=== PATIENT | female | born 1960 | race African-American/Black ===

== ENCOUNTER 2019-07-17 08:48 | Inpatient (IN) | payer MEDICAID ==
[~2019-07-17] VITALS: Ht 167.6 cm; Wt 84.1 kg
[2019-07-17] VITALS (9 sets, daily range): BP systolic 121–171; BP diastolic 51–86; Ht 167.6 cm; Wt 84.1 kg
--- NOTE | ~2019-07-17 | HEMODYNAMI ---
PATIENT:TIFFANIE COATES MEDICAL RECORD: [id number] : 56 [id number] ADMISSION DATE: 07/18/19 Generatedon:07/18/201915:16 Patient name: TIFFANIE COATES Patient #: [id number] SSN: DO B: 1960 Date of study: 07/18/2019 Page: Of Hemodynamic Procedure Report Patient Data Patient Demographics Procedure consent was obtained First Name: TIFFANIE Gender: Female Last Name: AMINATA : 1960 Patient #: [id number] Age: 59 year(s) Race: Black Additional ID: [id number] Contact details [address]: [address] [place] [address] State: [place] City: [place] Zip code: [address] Past Medical History History of disease Date Diagnosis Comments CAD Allergies: No known allergies Admission Admission Data Admission Date: 07/18/2019 Admission Time: 7:38 Room #: .2112 Height (in.): 65.75 BSA: 1.85 (m2) Height (cm.): 167 BMI: 27.25 (kg/m2) Weight (lbs.): 167.55 Weight (kg.): 76 Current Diagnosis Diagnosis Description Unstable angina Lab Results Lab Result Date: 07/18/2019 Lab Result Time: 0:00 Biochemistry Name Units Result Min Max BUN mg/dl 40 --(----)-* 7 18 Creatinine mg/dl 4.8 --(----)-* 0.6 1.3 CBC Name Units Result Min Max Hematocrit % 31.2 *-(----)-- 42 54 Hemoglobin g/dl 9.8 *-(----)-- 13.5 17.5 Procedure Procedure Types Cath Procedure Diagnostic Procedure [facility] w/Coronaries FFR/IVUS FFR Initial FFR Additional Sedation Charges Moderate Sedation up to 15 minutes PCI Procedure Coronary Stent Coronary Stent Initial x2 Hemochron ACT Test Procedure Description Procedure Date Procedure Date: 07/18/2019 Procedure Start Time: 9:46 Procedure End Time: 10:02 Procedure Staff Name Function Kevin Olmos MD Performing Physician Genet Gonzalez RT Monitor Alisa Hu RN Nurse Argentina Lara RT Scrub Procedure Data Cath Procedure Fluoroscopy Diagnostic fluoroscopy Total fluoroscopy Time: 3.9 time: 3.9 min min Diagnostic fluoroscopy Total fluoroscopy dose: 329 dose: 329 mGy mGy Contrast Material Contrast Material Type Amount (ml) Isovue 370 108 Entry Location Entry Primary Successful Side Size Upsize Upsize Entry Closure Succes sful Closure Location (Fr) 1 (Fr) 2 (Fr) Remarks Device Remarks Femoral Right 5 Fr 6 Fr Exoseal artery Short Estimated blood loss: 10 ml Diagnostic catheters Device Type Used For End Catheter Placement MULTIPACK Pigtail 5 Fr Procedure catheter MULTIPACK JL 4.0 5Fr Procedure catheter MULTIPACK 3DRC 5Fr Procedure catheter Procedure Complications No complications Procedure Medications Medication Administration Route Dosage 0.9% NaCl I.V. 100 ml/hr Oxygen etCO2 Nasal cannula 2 l/min Lidocaine 2% added to field 20 Heparin Flush Bag added to field 2 bags (1000units/500ml NS) Versed I.V. 2 mg Fentanyl I.V. 50 mcg Versed I.V. 2 mg Fentanyl I.V. 50 mcg Heparin Bolus I.V. 4000 units Hemodynamics Rest HGB: 9.8 (g/dl) Heart Rate: 87 (bpm) Snapshots Pre Cath Intra NCS Post Cath Vital Signs Time Heart Resp SPO2 etCO2 NIBP (mmHg) Rhythm Pain Sedation Rate (ipm) (%) (mmHg) Status Level (bpm) 9:21:24 86 22 98 27.9 Measuring NSR 0 (11) 10(A) , No pain 9:22:17 87 18 97 26.4 208/112(162) NSR 0 (11) 10(A) , No pain 9:27:04 76 13 98 21.9 201/110(162) NSR 0 (11) 10(A) , No pain 9:31:29 73 15 97 34 170/93(143) NSR 0 (11) 10(A) , No pain 9:35:53 70 16 97 34 168/100(138) NSR 0 (11) 10(A) , No pain 9:40:21 71 15 98 33.2 170/92(142) NSR 0 (11) 10(A) , No pain 9:44:43 70 15 98 34 160/95(122) NSR 0 (11) 10(A) , No pain 9:49:07 71 11 96 35.5 161/77(115) NSR 0 (11) 10(A) , No pain 9:53:25 70 10 97 34.8 151/81(121) NSR 0 (11) 10(A) , No pain 9:57:43 70 11 97 35.5 146/82(119) NSR 0 (11) 9(A) , No pain 10:02:08 71 11 98 34.7 148/78(122) NSR 0 (11) 9(A) , No pain Medications Time Medication Route Dose Verified Delivered Reason Notes Effectiveness by by 9:19:44 0.9% NaCl I.V. 100 Kevin Alisa used for ml/hr Amarilis Hu senior speech pathologist 9:19:53 Oxygen etCO2 2 Kevin Alisa used for Nasal l/min Amarilis Hu procedure cannula RN 9:19:57 Lidocaine 2% added 20ml Kevin Kevin for local to vial Amarilis Olmos MD anesthetic field 9:20:01 Heparin Flush added 2 Kevin Kevin used for Bag to bags Amarilis Olmos MD procedure (1000units/500ml field NS) 9:45:47 Versed I.V. 2 mg Kevin Alisa for sedation Amarilis Hu RN 9:45:56 Fentanyl I.V. 50 Kevin Alisa for sedation mcg Amarilis Hu RN 9:52:06 Versed I.V. 2 mg Kevin Alisa for sedation Amarilis Hu RN 9:52:09 Fentanyl I.V. 50 Kevin Alisa for sedation mcg Amarilis Hu RN 9:56:07 Heparin Bolus I.V. 4000 Kevin Alisa for verifi ed units Amarilis Hu anticoagulation with Dr. TRINITY Olmos Procedure Log Time Note 8:50:51 Informed consent obtained and on chart 8:51:07 Procedure Status Urgent Heart Cath (IP). 8:51:09 Time tracking: Regular hours (M-F 7:00 - 5:00) 8:51:13 Plan of Care:Hemodynamics will remain stable., Cardiac rhythm will remain stable., Comfort level will be maintained., Respiratory function will remain adequate., Patient/ family verbilizes understanding of procedure., Procedure tolerated without complication., Recovers from procedure without complications.. 8:51:16 H&P Date Dictated: 07/18/2019 Within 30 days and on chart.. 8:51:25 Patient allergic to No known allergies 8:53:06 Lab Result : Hemoglobin 9.8 g/dl 8:53:06 Lab Result : Hematocrit 31.2 % 8:53:06 Lab Result : BUN 40 mg/dl 8:53:06 Lab Result : Creatinine 4.8 mg/dl 9:00:16 Argentina Lara RT(R) sent for patient. Start room use. 9:03:37 Patient Weight : 167.55 lbs 9:03:40 Patient Height : 65.75 inches 9:03:50 Current Diagnosis : Unstable angina 9:13:24 Patient received from Med II to CCL 1 Alert and oriented. Tansferred to table in Supine position. 9:13:25 Warm blankets applied, and harjinder hugger turned on for patient comfort. 9:13:26 ECG and BP/O2 sat monitors applied to patient. 9:13:26 Correct patient and procedure confirmed by team. 9:19:36 Vital chart was started 9:19:44 0.9% NaCl 100 ml/hr I.V. was administered by Alisa Hu RN; used for procedure; Verbal order read back and verified. 9:19:53 Oxygen 2 l/min etCO2 Nasal cannula was administered by Alisa Hu RN; used for procedure; Verbal order read back and verified. 9:19:57 Lidocaine 2% 20ml vial added to field was administered by Kevin Olmos MD; for local anesthetic; Verbal order read back and verified. 9:20:01 Heparin Flush Bag (1000units/500ml NS) 2 bags added to field was administered by Kevin Olmos MD; used for procedure; Verbal order read back and verified. 9:21:34 Baseline sample Acquired. 9:21:37 Rhythm: sinus rhythm 9:21:38 Full Disclosure recording started 9:21:39 Pre-op teaching completed and patient verbalized understanding. 9:21:39 Pre-procedure instructions explained to patient. 9:21:42 Family in patients room. 9:21:43 Patient NPO since Midnight. 9:21:46 Is patient on blood thinner?Yes 9:21:48 ACC The patient was administered the following blood thiners within the last 24 hours: ACCPlavix 9:21:50 Patient diabetic? Yes. 9:21:51 If diabetic: On Metformin? No 9:23:33 Snore? Yes 9:23:33 Previous problem with sedation/anesthesia? No ? 9:23:34 Sleep apnea? No 9:23:35 Deviated septum? No 9:23:36 Opens mouth fully? Yes 9:23:37 Sticks out tongue? Yes 9:23:39 Airway obstruction? No ? 9:23:41 Dentures? No ? 9:23:43 Pre procedure: right dorsailis pedis pulse 1+ Palpable, but thready & weak; easily obliterated 9:23:49 Patient pain scale 0/10 ?. 9:23:55 IV patent on arrival in right antecubital with 0.9% NaCl at KVO. 9:23:57 Lab results completed and on chart. 9:24:00 Right groin area was prepped with chlora-prep and draped in sterile fashion 9:24:02 Alarms reviewed by R. N. 9:24:03 Sharps counted by scrub and verified by R.N. 9:24:05 Use device set Femoral Dx 9:24:06 ACIST Syringe (39325) opened to sterile field. 9:24:07 ACIST Hand Control (03461) opened to sterile field. 9:24:07 Bag Decanter (2002S) opened to sterile field. 9:24:08 Tegaderm 4 x 4 (1626W) opened to sterile field. 9:24:08 ACIST Manifold (33302) opened to sterile field. 9:24:09 Medline Cath Pack ([id number]) opened to sterile field. 9:24:10 DIAGNOSTIC Multipack 5Fr catheter set (XB4323) opened to sterile field. 9:24:11 SHEATH 5FR [place] (PLB032) opened to sterile field. 9:24:11 EMERALD Guide Wire (233-421) opened to sterile field. 9:29:31 Stress Test: no; N/A ? 9:33:09 Zero performed for pressure channel P1 9:44:20 --------ALL STOP TIME OUT------ 9:44:21 Final Timeout: patient, procedure, and site verified with staff and physician. All members of the team are in agreement. 9:44:23 Right groin site verified by team. 9:44:26 Fire Safety Assessment: A--An alcohol-based skin anteseptic being used preoperatively., C--Open oxygen or nitrous oxide is being used., D--An ESU, laser, or fiber-optic light is being used. 9:44:29 Physical assessment completed. ASA score P 3 - A patient with severe systemic disease as per Kevin Olmos MD. 9:44:33 5) <15 or on dialysis Very severe, or end stage kidney failure. 9:44:35 Maximum allowable contrast dose (3.7 X eGFR X 0.75)28 ml. 9:44:38 Sedation plan: IV Moderate Sedation Medication:Versed, Fentanyl 9:45:47 Versed 2 mg I.V. was administered by Alisa Hu RN; for sedation; Verbal order read back and verified. 9:45:56 Fentanyl 50 mcg I.V. was administered by Alisa Hu RN; for sedation; Verbal order read back and verified. 9:46:18 Procedure started. 9:46:31 Local anesthetic to right femoral artery with Lidocaine 2% by Kevin Olmos MD.INITIAL ACCESS ONLY 9:47:09 A 5 Fr sheath was inserted into the Right Femoral artery 9:47:41 A MULTIPACK Pigtail 5 Fr catheter was advanced over the wire and used for Procedure. 9:48:03 LV gram done using ANDERSON 9:48:06 Injector settings: Ml/sec: 10, Volume: 20, 9:48:27 EF : 55 % 9:48:28 Catheter removed. 9:48:35 A MULTIPACK JL 4.0 5Fr catheter was advanced over the wire and used for Procedure. 9:49:35 LCA angiography performed. 9:49:57 Catheter removed. 9:50:01 A MULTIPACK 3DRC 5Fr catheter was advanced over the wire and used for Procedure. 9:50:58 RCA angiography performed. 9:50:59 Catheter removed. 9:51:03 Proceeding to intervention. 9:51:05 SHEATH 6FR [place] (EKU042) opened to sterile field. 9:51:06 GUIDE 6FR XBLAD 3.5 catheter ([id number]) opened to sterile field. 9:51:06 INFLATOR Merit BasixCompak (RA6287) opened to sterile field. 9:51:10 [place] Verrata Plus pressure wire (02025W) opened to sterile field. 9:51:23 Sheath upsized to a 6 Fr Short. 9:52:01 6 Fr XBLAD 3.5 guide catheter was inserted over the wire 9:52:06 Versed 2 mg I.V. was administered by Alisa Hu RN; for sedation; Verbal order read back and verified. 9:52:09 Fentanyl 50 mcg I.V. was administered by Alisa Hu RN; for sedation; Verbal order read back and verified. 9:53:22 FFR/IFR wire advanced. 9:54:10 Wire advanced across lesion. 9:54:25 mLAD lesion measured at .74 with IFR 9:54:34 IFR REDIRECTED TO THE CIRC 9:54:37 Wire advanced across lesion. 9:54:55 Circ lesion measured at .76 with IFR 9:55:11 Pre PCI Site: [place] Circ has 80% stenosis. 9:55:20 Pre PCI Site: [place] LAD has 80% stenosis. 9:56:07 Heparin Bolus 4000 units I.V. was administered by Alisa Hu RN; for anticoagulation; verified with Dr. Olmos Verbal order read back and verified. 9:56:34 Place stent Inflation Number: 1 A HIMA RX 3.0 x 18 stent ([id number]) was prepped and advanced across the Mid CX . The stent was deployed at 13 CARLOS MANUEL for 0:00 (min:sec) . 9:56:57 Stent catheter was removed intact over wire. 9:57:35 Wire redirected to LAD. 9:58:11 Wire advanced across lesion. 9:59:04 Place stent Inflation Number: 1 A HIMA RX 3.0 x 34 stent ([id number]) was prepped and advanced across the Prox LAD . The stent was deployed at 17 CARLOS MANUEL for 0:00 (min:sec) . 9:59:09 Stent catheter was removed intact over wire. 9:59:12 Wire removed. 9:59:13 Guide catheter removed. 9:59:21 EXOSEAL 6Fr (EX600) opened to sterile field. 10:00:09 Sheath removed intact; hemostasis achieved with Exoseal to the Right Femoral artery. 10:00:12 Procedure ended.(Physican Out) 10:00:23 Contrast amount:Isovue 370 108ml. 10:00:28 Fluoroscopy time 03.90 minutes. 10:00:38 Fluoroscopy dose: 329 mGy 10:00:38 Flurop Dose total: 329 10:00:42 Dose Area Product 39103 mGy/cm. 10:00:46 Maximum allowable dose exceeded? Yes. 10:00:47 Sharps counted by scrub and verified by R.N. 10:00:49 Post-op/insertion site Right Femoral artery dressed using a 4 x 4 and Tegaderm. 10:00:52 Post-procedure physical assessment completed. ASA score P 3 - A patient with severe systemic disease as per Kevin Olmos MD. 10:00:55 Post procedure rhythm: sinus rhythm 10:00:57 Estimated blood loss: 10 ml 10:00:58 Patient needs reinforcement of post procedure teaching. 10:00:58 Post procedure instruction explained to patient.Patient verbalizes understanding. 10:01:50 Procedure type changed to Cath procedure, Diagnostic procedure, LHC, [facility] w/Coronaries, FFR/IVUS, FFR Initial, FFR Additional, Sedation Charges, Moderate Sedation up to 15 minutes, PCI procedure, Coronary Stent, Coronary Stent Initial x2, Hemochron ACT Test 10:02:26 ACT drawn and resulted at 201 seconds. (normal therapeutic range 180-240 seconds). 10:02:27 Procedure and supply charges have been captured, reviewed, submitted and are correct. 10:02:30 Procedure Complication : No complications 10:02:32 Vital chart was stopped 10:02:33 [facility] Findings: MVD- PCI performed (see procedure note) 10:02:35 Operative report dictated upon procedure completion. 10:02:36 See physician's report for complete and final results. 10:02:39 Report given to PCU. 10:02:46 Patient transfered to PCU with Bed. 10:02:48 Full Disclosure recording stopped 10:02:48 Procedure ended. 10:02:56 ACC-PCI Only Patient was given prescriptions, or instructed by Kevin Olmos MD to start/continue the following medications upon discharge: Plavix 10:02:58 End room use (Document Last) Intervention Summary Intervention Notes Time ActionType Lesion and Equipment Used Action# Pressure Duration Attributes 9:56:34 Place stent Mid CX HIMA RX 3.0 x 1 13 00:00 18 stent ([id number]) 9:59:04 Place stent Prox LAD HIMA RX 3.0 x 1 17 00:00 34 stent ([id number]) Device Usage Item Name Manufacture Quantity Catalog Hospital Part Current Minimal Lot# / Number Charge Number Stock Stock Serial# Code ACIST Syringe Acist 1 16410 440869 486044 497680 20 (99608) Medical Systems Inc Bag Decanter Microtek 1 2001S 979105 13037 616958 5 (2001S) Medical Inc. ACIST Hand Acist 1 40857 561583 070536 116850 5 Control Medical (69930) Systems Inc ACIST Manifold Acist 1 33065 884704 416471 140290 5 (00358) Medical Systems Inc Tegaderm 4 x 4 3M 1 1626W 123784 195733 809179 5 (1626W) Medline Cath Medline 1 [id number] 685422 04614 334301 5 Pack ([id number]) DIAGNOSTIC Cardinal 1 FB6665 842238 89264 846406 30 Multipack 5Fr Health catheter set (QM0728) EMERALD Guide Cardinal 1 502-455 874899 080237 444422 5 Wire (502-455) Health SHEATH 5FR Terumo 1 VKM974 791775 124506 785336 5 [place] (ZUM081) MULTIPACK Cardinal 1 868052 5 Pigtail 5 Fr Health catheter MULTIPACK JL Cardinal 1 600530 5 4.0 5Fr Health catheter MULTIPACK 3DRC Cardinal 1 606449 5 5Fr catheter Health SHEATH 6FR Terumo 1 RTE496 322749 356429 283455 40 [place] (UVA330) INFLATOR Merit Merit 1 DO3081 000962 528816 787885 15 MWHSmaHexagram 49 Medical (RN8975) GUIDE 6FR Cardinal 1 [id number] 652626 572947 444592 10 XBLAD 3.5 Health catheter ([id number]) Unadilla Unadilla 1 [id number] 395099 994814093 123586 5 Verrata Plus pressure wire (29480S) HIMA RX 3.0 x Medtronic 1 [id number] 011892 9342818 992496 5 [id number] 18 stent ([id number]) HIMA RX 3.0 x Medtronic 1 [id number] 106739 2759768 270007 5 [id number] 34 stent ([id number]) EXOSEAL 6Fr Cardinal 1 EX600 964865 122034 000523 10 (EX600) Health Signature Audit [place] Stage Time Signature Unsigned Intra-Procedure 07/18/2019 Genet Gonzalez 10:08:09 AM RT(R) Intra-Procedure 07/18/2019 Alisa Hu 10:08:37 AM RN Intra-Procedure 07/18/2019 Kevin Hu RN 10:08:50 AM 07/18/2019 3:14:30 PM Intra-Procedure 07/18/2019 Genet Gonzalez 3:15:39 PM RT(R) Intra-Procedure 07/18/2019 Alisa uH 3:16:26 PM RN Intra-Procedure 07/18/2019 Kevin Olmos 3:16:45 PM [place] [id number] [place] [address]
--- NOTE | ~2019-07-17 | HEMODYNAMI ---
PATIENT:TIFFNAIE COATES MEDICAL RECORD: [id number] : 56 LOCATION:[facility] [address] [place], [place] [address]T# [id number] ADMISSION DATE: 07/18/19 Generatedon:07/22/20198:04 Patient name: TIFFANIE COATES Patient #: [id number] SSN: [id number] : 1960 Date of study: 07/22/2019 Page: Of Hemodynamic Procedure Report Patient Data Patient Demographics Procedure consent was obtained First Name: TIFFANIE Gender: Female Last Name: AMINATA : 1960 Patient #: [id number] Age: 59 year(s) Race: Black SSN: [id number] Additional ID: [id number] Contact details [address]: [address] [place] [address] State: [place] City: [place] Zip code: [address] Past Medical History History of disease Date Diagnosis Comments CAD Allergies: No known allergies Admission Admission Data Admission Date: 07/18/2019 Admission Time: 7:38 Room #: D.2112 Height (in.): 65.75 BSA: 1.93 (m2) Height (cm.): 167 BMI: 30.12 (kg/m2) Weight (lbs.): 185.19 Weight (kg.): 84 Current Diagnosis Diagnosis Description Unstable angina Lab Results Lab Result Date: 07/18/2019 Lab Result Time: 0:00 Biochemistry Name Units Result Min Max BUN mg/dl 40 --(----)-* 7 18 Creatinine mg/dl 4.8 --(----)-* 0.6 1.3 CBC Name Units Result Min Max Hematocrit % 31.2 *-(----)-- 42 54 Hemoglobin g/dl 9.8 *-(----)-- 13.5 17.5 Procedure Procedure Types Cath Procedure PCI Procedure Coronary Stent Coronary Stent Initial Hemochron ACT Test Procedure Description Procedure Date Procedure Date: 07/22/2019 Procedure Start Time: 7:51 Procedure End Time: 8:02 Procedure Staff Name Function Kevin Olmos MD Performing Physician Alisa Hu RN Monitor Genetkayli Gonzalez RT Scrub Les Garza RN Nurse Procedure Data Cath Procedure Fluoroscopy Diagnostic fluoroscopy Total fluoroscopy Time: 1.9 time: 1.9 min min Diagnostic fluoroscopy Total fluoroscopy dose: 274 dose: 274 mGy mGy Contrast Material Contrast Material Type Amount (ml) Isovue 300 26 Entry Location Entry Primary Successful Side Size Upsize Upsize Entry Closure Succes sful Closure Location (Fr) 1 (Fr) 2 (Fr) Remarks Device Remarks Radial Right 6 Fr artery Short Estimated blood loss: 10 ml Procedure Complications No complications Procedure Medications Medication Administration Route Dosage Oxygen NC 2 l/min Fentanyl I.V. 50 mcg Versed I.V. 1 mg Heparin Flush Bag added to field 2 bags (1000units/500ml NS) Lidocaine 2% added to field 20 0.9% NaCl I.V. 100 ml/hr Heparin Bolus I.V. 4000 units Fentanyl I.V. 50 mcg Radial Cocktail added to field 1 syringe (Verapamil 2mg/Nitro 400mcg/Heparin 1500units) Radial Cocktail I.A. 1 syringe (Verapamil 2mg/Nitro 400mcg/Heparin 1500units) Versed I.V. 1 mg Hemodynamics Rest BSA: 1.93 (m2) HGB: 9.8 (g/dl) O2 Consumption: Estimated: 198.29 (ml/min) O2 Con sumption indexed: Estimated:102.74 (ml/min/m) Heart Rate: 92 (bpm) Snapshots Pre Cath Intra NCS Post Cath Vital Signs Time Heart Resp SPO2 etCO2 NIBP (mmHg) Rhythm Pain Sedation Rate (ipm) (%) (mmHg) Status Level (bpm) 7:34:56 90 18 95 28.4 181/94(135) NSR 0 (11) 10(A) , No pain 7:39:18 84 16 95 25.4 173/88(130) NSR 0 (11) 10(A) , No pain 7:43:32 83 16 93 30.6 145/85(108) NSR 0 (11) 10(A) , No pain 7:47:46 83 17 94 31.3 155/80(112) NSR 0 (11) 10(A) , No pain 7:52:00 87 18 96 30.6 144/78(112) NSR 0 (11) 9(A) , No pain 7:56:16 85 17 93 30.6 130/75(106) NSR 0 (11) 9(A) , No pain 7:59:28 85 14 94 30.6 138/81(100) NSR 0 (11) 9(A) , No pain Medications Time Medication Route Dose Verified Delivered Reason Notes Effectiveness by by 7:50:13 Oxygen NC 2 l/min Kevin Alisa Per physician Amarilis Hu RN 7:50:20 Fentanyl I.V. 50 mcg Kevin Alisa for sedation Amarilis Hu RN 7:50:26 Versed I.V. 1 mg Kevin Alisa for sedation Amarilis Hu RN 7:50:32 Heparin Flush added 2 bags Kevin Alisa used for Bag to Amarilis Hu procedure (1000units/500ml field RN NS) 7:50:41 Lidocaine 2% added 20ml Kevin Alisa for local to vial Amarilis Hu anesthetic field RN 7:50:50 0.9% NaCl I.V. 100 Kevin Alisa Per physician ml/hr Amarilis Hu RN 7:52:15 Heparin Bolus I.V. 4000 Kevin Alisa for units Amarilis Hu anticoagulation RN 7:52:32 Fentanyl I.V. 50 mcg Kevin Alisa for sedation Amarilis Hu RN 7:52:49 Radial Cocktail added 1 Kevin Alisa used for (Verapamil to syringe Amarilis Hu procedure 2mg/Nitro field RN 400mcg/Heparin 1500units) 7:52:56 Radial Cocktail I.A. 1 Kevin Kevin for (Verapamil syringe Amarilis Olmos MD vasodilation 2mg/Nitro 400mcg/Heparin 1500units) 7:54:14 Versed I.V. 1 mg Kevin Alisa for sedation Amarilis Hu supervisor keymodule assembly Log Time Note 7:11:13 Patient Height : 65.75 inches 7:11:13 Informed consent obtained and on chart 7:12:01 Procedure Status Urgent Heart Cath (IP). 7:12:03 Time tracking: Regular hours (M-F 7:00 - 5:00) 7:12:08 Plan of Care:Hemodynamics will remain stable., Cardiac rhythm will remain stable., Comfort level will be maintained., Respiratory function will remain adequate., Patient/ family verbilizes understanding of procedure., Procedure tolerated without complication., Recovers from procedure without complications.. 7:12:15 H&P Date Dictated: 07/22/2019 Within 30 days and on chart.. 7:13:48 Patient allergic to No known allergies 7:13:54 Is the patient allergic to Iodine/contrast media? No. 7:13:56 Was the patient premedicated? N/A 7:15:03 Is patient on blood thinner?Yes 7:15:07 ACC The patient was administered the following blood thiners within the last 24 hours: ACCPlavix 7:15:43 Patient Weight : 185.19 lbs 7:17:23 Diagnostic Cath Status : Urgent 7:17:36 Patient not . Patient is over age 55. 7:18:12 Patient diabetic? Yes. 7:18:12 If diabetic: On Metformin? No 7:18:51 Procedure type changed to Cath procedure, PCI procedure, Coronary Stent, Coronary Stent Initial, Hemochron ACT Test 7:19:02 Alisa Hu RN sent for patient. Start room use. 7:33:36 Patient received from Med II to CCL 1 Alert and oriented. Tansferred to table in Supine position. 7:33:44 Warm blankets applied, and harjinder hugger turned on for patient comfort. 7:33:44 Correct patient and procedure confirmed by team. 7:33:44 ECG and BP/O2 sat monitors applied to patient. 7:33:45 Vital chart was started 7:33:46 Baseline sample Acquired. 7:33:49 Rhythm: sinus rhythm 7:33:50 Full Disclosure recording started 7:33:51 Pre-procedure instructions explained to patient. 7:33:51 Pre-op teaching completed and patient verbalized understanding. 7:33:53 Family unavailable. 7:33:54 Patient NPO since Midnight. 7:34:00 Previous problem with sedation/anesthesia? No ? 7:34:01 Snore? Yes 7:34:02 Sleep apnea? No 7:34:03 Deviated septum? No 7:34:04 Opens mouth fully? Yes 7:34:08 Sticks out tongue? Yes 7:34:09 Airway obstruction? No ? 7:34:11 Dentures? No ? 7:34:14 Pre procedure: right dorsailis pedis pulse 1+ Palpable, but thready & weak; easily obliterated 7:34:16 Modified Tres's test Ulnar < 7 seconds 7:34:17 Patient pain scale 0/10 ?. 7:34:21 IV patent on arrival in right hand with 0.9% NaCl at [facility]. 7:34:24 Lab results completed and on chart. 7:34:28 Right Radial & Right Groin area was prepped with chlora-prep and draped in sterile fashion 7:34:29 Alarms reviewed by R. N. 7:34:32 Sharps counted by scrub and verified by R.N. 7:44:03 Stress Test: no; N/A ? 7:48:18 Risk of Mortality: 0.9 7:48:20 Risk of blood transfusion: 19.3 7:48:23 Risk of NADEEM: 12.6 7:48:27 --------ALL STOP TIME OUT------ 7:48:28 Final Timeout: patient, procedure, and site verified with staff and physician. All members of the team are in agreement. 7:50:03 Right Radial & Left Groin site verified by team. 7:50:07 Fire Safety Assessment: A--An alcohol-based skin anteseptic being used preoperatively., C--Open oxygen or nitrous oxide is being used., D--An ESU, laser, or fiber-optic light is being used. 7:50:12 Physical assessment completed. ASA score P 3 - A patient with severe systemic disease as per Kevin Olmos MD. 7:50:13 Oxygen 2 l/min NC was administered by Alisa Hu RN; Per physician; Verbal order read back and verified. 7:50:16 5) <15 or on dialysis Very severe, or end stage kidney failure. 7:50:20 Fentanyl 50 mcg I.V. was administered by Alisa Hu RN; for sedation; Verbal order read back and verified. 7:50:26 Versed 1 mg I.V. was administered by Alisa Hu RN; for sedation; Verbal order read back and verified. 7:50:31 Maximum allowable contrast dose (3.7 X eGFR X 0.75)31 ml. 7:50:32 Heparin Flush Bag (1000units/500ml NS) 2 bags added to field was administered by Alisa Hu RN; used for procedure; Verbal order read back and verified. 7:50:35 Sedation plan: IV Moderate Sedation Medication:Versed, Fentanyl 7:50:41 Lidocaine 2% 20ml vial added to field was administered by Alisa Hu RN; for local anesthetic; Verbal order read back and verified. 7:50:42 Use device set Radial Dx or PCI 7:50:44 ACIST Syringe (14963) opened to sterile field. 7:50:44 Medline Cath Pack ([id number]) opened to sterile field. 7:50:45 Bag Decanter () opened to sterile field. 7:50:46 ACIST Hand Control (08209) opened to sterile field. 7:50:47 ACIST Manifold (75155) opened to sterile field. 7:50:48 Tegaderm 4 x 4 (1626W) opened to sterile field. 7:50:48 MBrace Wrist Support ([id number]) opened to sterile field. 7:50:50 0.9% NaCl 100 ml/hr I.V. was administered by Alisa Hu RN; Per physician; Verbal order read back and verified. 7:50:51 EMERALD Guide Wire (271-393) opened to sterile field. 7:50:52 SHEATH 6FR RAIN (7957591) opened to sterile field. 7:51:29 GUIDE 6FR AR 2.0 SH catheter ([id number]) opened to sterile field. 7:51:30 INFLATOR Merit BasixCompak (SY8348) opened to sterile field. 7:51:31 FIELDER XT 190cm guidewire ([id number]) opened to sterile field. 7:51:48 Procedure started. 7:51:55 Local anesthetic to right radial artery with Lidocaine 2% by Kevin Olmos MD.INITIAL ACCESS ONLY 7:52:06 A 6 Fr Short sheath was inserted into the Right Radial artery 7:52:15 Heparin Bolus 4000 units I.V. was administered by Alisa Hu RN; for anticoagulation; Verbal order read back and verified. 7:52:22 PCI Cath status Elective 7:52:32 Fentanyl 50 mcg I.V. was administered by Alisa Hu RN; for sedation; Verbal order read back and verified. 7:52:49 Radial Cocktail (Verapamil 2mg/Nitro 400mcg/Heparin 1500units) 1 syringe added to field was administered by Alisa Hu RN; used for procedure; Verbal order read back and verified. 7:52:56 Radial Cocktail (Verapamil 2mg/Nitro 400mcg/Heparin 1500units) 1 syringe I.A. was administered by Kevin Olmos MD; for vasodilation; Verbal order read back and verified. 7:53:07 ACC Pre-intervention CHRISTINA Flow is 3. 7:53:08 Pre PCI Site: Nikolai RCA has 80% stenosis. 7:53:14 6 Fr AR II SH guide catheter was inserted over the wire 7:53:25 FIELDER 190CM wire advanced. 7:53:26 Wire advanced across lesion. 7:54:14 Versed 1 mg I.V. was administered by Alisa Hu RN; for sedation; Verbal order read back and verified. 7:54:50 Place stent Inflation Number: 1 A HIMA RX 3.0 x 30 stent ([id number]) was prepped and advanced across the Prox RCA . The stent was deployed at 17 CARLOS MANUEL for 0:00 (min:sec) . 7:55:43 Inflation number: 2 The stent balloon was then re-inflated across the Prox RCA to 11 CARLOS MANUEL for 0:00 (min:sec) . 7:55:48 Stent catheter was removed intact over wire. 7:55:49 Wire removed. 7:55:49 Guide catheter removed. 7:58:28 ZEPHYR REGULAR TR BAND (835678) opened to sterile field. 7:58:36 Procedure ended.(Physican Out) 7:58:50 Fluoroscopy time 01.90 minutes. 7:58:54 Fluoroscopy dose: 274 mGy 7:58:54 Flurop Dose total: 274 7:59:00 Dose Area Product 00597 mGy/cm. 7:59:06 ACT drawn and resulted at 187 seconds. (normal therapeutic range 180-240 seconds). 7:59:15 Contrast amount:Isovue 300 26ml. 7:59:22 Maximum allowable dose exceeded? No. 7:59:23 Sharps counted by scrub and verified by R.N. 7:59:25 Brackney band inflated with 10cc of air. 7:59:27 Insertion/operative site no bleeding no hematoma. 7:59:36 Post right radial artery:stable, soft, clean and dry 7:59:40 Post Procedure Pulses reassessed and unchanged 7:59:47 Post procedure: right radial pulse 2+ Normal; easily identifiable; not easily obliterated. 7:59:50 Post-procedure physical assessment completed. ASA score P 3 - A patient with severe systemic disease as per Kevin Olmos MD. 7:59:52 Post procedure rhythm: unchanged. 7:59:55 Estimated blood loss: 10 ml 7:59:56 Post procedure instruction explained to patient.Patient verbalizes understanding. 7:59:57 Patient needs reinforcement of post procedure teaching. 8:02:06 Procedure and supply charges have been captured, reviewed, submitted and are correct. 8:02:10 Procedure Complication : No complications 8:02:12 Vital chart was stopped 8:02:14 [facility] Findings: MVD- PCI performed (see procedure note) 8:02:16 Operative report dictated upon procedure completion. 8:02:17 See physician's report for complete and final results. 8:02:19 Report given to Med II. 8:02:24 Patient transfered to Med II with Bed. 8:02:26 Procedure ended. 8:02:26 Full Disclosure recording stopped 8:02:35 ACC-PCI Only Patient was given prescriptions, or instructed by Kevin Olmos MD to start/continue the following medications upon discharge: Plavix 8:02:36 End room use (Document Last) 8:02:52 End room use (Document Last) 8:03:13 End room use (Document Last) Intervention Summary Intervention Notes Time ActionType Lesion and Equipment Used Action# Pressure Duration Attributes 7:54:[address] Place stent Prox RCA HIMA RX 3.0 x 1 17 00:00 30 stent ([id number]) 7:55:43 Reinflate Prox RCA HIMA RX 3.0 x 2 11 00:00 stent 30 stent balloon ([id number]) Device Usage Item Name Manufacture Quantity Catalog Hospital Part [facility] Lot# / Number Charge Number Stock Stock Serial# Code ACIST Syringe Acist 1 00981 461523 729106 988237 20 (87905) [employer] Inc Medline Cath Medline 1 [id number] 293818 77339 950631 5 Pack ([id number]) Bag Decanter Microtek 1 228493 89966 153026 5 () Medical Inc. ACIST Hand Acist 1 63345 702640 696809 355385 5 Control Medical (03083) Systems Inc ACIST Manifold Acist 1 60674 868656 067203 007526 5 (44406) Medical Systems Inc Tegaderm 4 x 4 3M 1 1626W 423751 883627 710582 5 (1626W) MBrace Wrist Advanced 1 140-0250-00 097605 49405 318523 5 Support Vascular ([id number]) Dynamics EMERALD Guide Cardinal 1 502-455 085973 393188 351330 5 Wire (502-455) Health SHEATH 6FR Cardinal 1 8926784 955184 6261593 653722 5 RAIN (2947560) Health GUIDE 6FR AR Medtronic 1 [id number] 072502 96464 229668 1 2.0 SH catheter (FO8MC2VT) INFLATOR Merit Merit 1 [id number] 599430 442642 844844 15 [employer] Medical (XT7810) FIELDER XT Asahi Intecc 1 [id number] 165332 51812 642709 5 190cm guidewire ([id number]) HIMA RX 3.0 x Medtronic 1 [id number] 147063 8697759 335968 5 [id number] 30 stent ([id number]) ZEPHYR REGULAR Cardinal 1 828986 578102 8666596 446952 5 [facility] ProductGram (591436) Signature Audit [place] Stage Time Signature Unsigned Intra-Procedure 07/22/2019 Alisa Hu 8:02:52 AM RN Intra-Procedure 07/22/2019 Les Garza 8:03:37 AM RN Intra-Procedure 07/22/2019 Kevin Olmos 8:04:40 AM Signatures Performing Physician : Signature : Kevin Olmos MD Date : Time : Monitor : Alisa Hu Signature : RN Date : Time : Nurse : Les Garza RN Signature : Date : Time : [address] [place] [address]
--- NOTE | ~2019-07-17 | OP ---
PATIENT NAME: TIFFANIE COATES MEDICAL RECORD: [id number] :56 LOCATION:D.M2 D.2112 ADMISSION DATE:07/18/19 SURGEON: AMALIA VANG MD DATE OF OPERATION: 07/22/2019 DATE OF SERVICE: 07/22/2019 PROCEDURES: 1. PTCA stent RCA. 2. Selective coronary angiography. INDICATION: Angina and coronary artery disease. PROCEDURE IN DETAIL: After informed consent was obtained and after detailed description of risks, benefits as well as alternative therapies, the patient elected to proceed with the angiogram and angioplasty. The right radial area was prepped and draped in normal sterile fashion. Right radial artery was cannulated via modified Seldinger technique with placement of 6-Estonian sheath. All catheters exchanged through this sheath. FINDINGS: The right coronary has 80% stenosis proximally. It then has a previously placed stent and 95% stenosis at the PDA. The PDA could not be wired through the previously placed stent. We addressed the proximal stenosis with a 3.0 x 30 Zaid taken at 21 atmospheres. Result was 0% residual stenosis. OVERALL IMPRESSION: Successful percutaneous transluminal coronary angioplasty stent of the right coronary artery going from 80% initial stenosis to 0% residual. TRANSINT:[id number] Voice Confirmation ID: [id number] DOCUMENT ID: [id number] AMALIA VANG MD CC: [id number] DICTATION DATE: 07/22/19 0800 THREAD TRIMMER: 07/22/19 1124 ADM IN [facility] [address] [place] [address]
[2019-07-17] MEDS ORDERED: HYDROCHLOROTHIA25 MG PO (08:56)
[2019-07-17] MEDS ORDERED: CATAPRES0.1 MG PO (08:56)
[2019-07-17] MEDS ORDERED: LISINOPRIL2.5 MG PO (08:57)
[2019-07-17] MEDS ORDERED: SODIUM BICARBO325 MG PO (08:57)
[2019-07-17] MEDS ORDERED: PLAVIX75 MG PO (08:58)
[2019-07-17] MEDS ORDERED: NITROQUICK0.4 MG SL (08:59)
[2019-07-17] MEDS ORDERED: JANUVIA25 MG PO (09:02)
[2019-07-17] MEDS ORDERED: LEVEMIR IN100 UNITS/ SC (09:02)
[2019-07-17 09:35] LABS: BASOPHILS 0.5 % (0-2); EOSINOPHILS 1.1 % (0-7); HEMATOCRIT 33.2 % (36.0-48.0); HEMOGLOBIN 10.7 g/dL (12-16); IMMATURE GRANULOCYTES 0.1 % (0-5); LYMPHOCYTES 20.4 % (15-50); MCH 31.9 pg (26.0-34.0); MCHC 32.2 g/dL (31.0-37.0); MCV 99.1 fL (80.0-100.0); MEAN PLATELET VOLUME 10.7 fL (7.4-10.4); MONOCYTES 5.4 % (2-11); NEUTROPHILS 72.5 % (40-80); PLATELET COUNT 299 10x3/uL (130-400); RBC 3.35 10x6/uL (4.00-5.40); WBC 8.2 10x3/uL (4.8-10.8)
[2019-07-17 09:43] LABS: APTT 29.6 SECONDS (22.8-39.4); INR 1.27 (0.85-1.17); PROTIME 15.8 SECONDS (11.6-15.0)
[2019-07-17 09:45] LABS: CALC OSMOLALITY 294 mosm/kg (275-300); CALCIUM 8.5 mg/dL (8.5-10.1); CARBON DIOXIDE 21.5 mmol/L (21.0-32.0); CHLORIDE - SERUM 109 mmol/L (98-107); CREATININE - SERUM 4.8 mg/dL (0.6-1.3); GLUCOSE 151 mg/dL (74-106); POTASSIUM - SERUM 4.3 mmol/L (3.5-5.1); SODIUM 142 mmol/L (136-145); UREA NITROGEN 39 mg/dL (7-18); eGFR NON AFRICAN AMERICAN 10 mL/min (90-120)
[2019-07-17 09:59] LABS: ALBUMIN 2.9 g/dL (3.4-5.0); ALKALINE PHOSPHATASE 115 U/L (30-120); ALT (SGPT) 15 U/L (10-68); BILIRUBIN - TOTAL 0.55 mg/dL (0.2-1.3); CKMB 3.2 U/L (0.0-3.6); CREATINE KINASE 144 UL (21-215); PROTEIN - SERUM 7.5 g/dL (6.4-8.2); TROPONIN-I 0.018 ng/mL (0.000-0.060)
[2019-07-17 11:09] LABS: CREATINE KINASE 153 UL (21-215)
--- NOTE | 2019-07-17 11:10 | NUR ---
REPORT TO TRINITY ANTONY
--- NOTE | 2019-07-17 11:17 | NUR ---
TRANSPORTED TO ROOM #2112, CONDITION STABLE
--- NOTE | 2019-07-17 11:29 | NUR ---
RECEIVED PT FROM ER. PT IS AAO AND UP AD ARIANA. RR EVEN AND UNLABORED ON RA. VSS AND WNL. NO S/S OF DISTRESS NOTED. PT SITTING ON EDGE OF BED. CALL LIGHT W/I REACH. FAMILY AT BEDSIDE. PIV SALINE LOCKED. PT ORIENTED TO ROOM. QUICKSTART, HISTORY, AND MED REQ COMPLETE. WILL CTM.
[2019-07-17 12:58] LABS: % SATURATION 33 % (15-55); IRON 90 ug/dl (35-150); TOTAL IRON BIND CAPACITY 268 ug/dl (260-445); UNSAT IRON BIND CAPACITY 178 ug/dl (150-375)
[2019-07-17 14:17] LABS: BILIRUBIN NEGATIVE (NEGATIVE); GLUCOSE 50 mg/dL (NEGATIVE); KETONE NEGATIVE (NEGATIVE); NITRITE NEGATIVE (NEGATIVE); SPECIFIC GRAVITY 1.015 (1.005-1.020); UROBILINOGEN NORMAL (NORMAL)
[2019-07-17 14:19] LABS: EPITHELIAL CELLS 0-5 /hpf (0-5); RED CELLS - URINE 0-5 /hpf (0-5); WHITE CELLS - URINE 25-50 /hpf (NEGATIVE)
[2019-07-17 14:20] LABS: BACTERIA MANY /hpf (NEGATIVE); HYALINE CAST 0-5 /lpf (NONE SEEN)
[2019-07-17 16:57] LABS: CKMB 4.2 U/L (0.0-3.6); CREATINE KINASE 125 UL (21-215); TROPONIN-I 0.053 ng/mL (0.000-0.060)
--- NOTE | 2019-07-17 19:34 | NUR ---
REPORT RECEIVED, WILL CONTINUE POC. PATIENT IS AAOX4, LYING IN SEMI-FOWLERS POSITION. NO S/S OF DISTRESS OBSERVED, RR EVEN AND UNLABORED ON ROOM AIR. EDUCATED PATIENT ABOUT NPO@ MIDNIGHT FOR PROCEDURE IN AM. PATIENT EXPRESSED UNDERSTANDING. PIV TO LT HAND, PATENT, INFUSING NS @ 75ML/HR, DRSG C/D/I. PATIENT DENIES NEEDS AT THIS TIME. CL IN REACH, BED LOCKED AND LOWERED. WILL CTM.
[2019-07-17 22:46] LABS: CKMB 7.2 U/L (0.0-3.6); CREATINE KINASE 128 UL (21-215)
[2019-07-17 22:53] LABS: TROPONIN-I 0.151 ng/mL (0.000-0.060)
[2019-07-18] VITALS (14 sets, daily range): BP systolic 136–210; BP diastolic 80–116
--- NOTE | 2019-07-18 03:31 | NUR ---
I have reviewed this patient and I concur with the Shift Assessment completed by the Licensed Practical Nurse today this shift.
--- NOTE | 2019-07-18 04:54 | NUR ---
PT BP 210/116 PRN CLONIDINE ADMINISTERED PER ORDERS.
[2019-07-18 05:12] LABS: BASOPHILS 0.2 % (0-2); EOSINOPHILS 1.3 % (0-7); HEMATOCRIT 31.2 % (36.0-48.0); HEMOGLOBIN 9.8 g/dL (12-16); IMMATURE GRANULOCYTES 0.2 % (0-5); LYMPHOCYTES 13.2 % (15-50); MCHC 31.4 g/dL (31.0-37.0); MEAN PLATELET VOLUME 10.7 fL (7.4-10.4); MONOCYTES 9.7 % (2-11); NEUTROPHILS 75.4 % (40-80); PLATELET COUNT 261 10x3/uL (130-400); RBC 3.06 10x6/uL (4.00-5.40); RDW 15.4 % (11.5-14.5); WBC 9.9 10x3/uL (4.8-10.8)
[2019-07-18 05:27] LABS: ANION GAP 17.4 mmol/L (8-16); CREATININE - SERUM 4.8 mg/dL (0.6-1.3); POTASSIUM - SERUM 4.4 mmol/L (3.5-5.1)
--- NOTE | 2019-07-18 07:28 | NUR ---
PT IS RESTING IN BED WITH EYES OPEN. RESPIRATIONS ARE EVEN AND UNLABORED. PT IS AAO X 4. PT DENIES PRESENCE OF PAIN/N/V/DYSPNEA AT THIS TIME. FAMILY IS AT BEDSIDE. PIV TO RIGHT HAND INPLACE AND INFUSING WITHOUT DIFFICULTY. BED IS IN THE LOWEST POSITION. CALL LIGHT AND BEDSIDE TABLE ARE WITHIN REACH. SIDE RAILS X 2 PT DENIES FURTHER NEEDS. WILL CONT TO MONITOR.
--- NOTE | 2019-07-18 08:28 | NUR ---
MORNING MEDS GIVEN WITH SIPS OF H2O PER DR SHINE. SEE EMAR.
--- NOTE | 2019-07-18 08:29 | NUR ---
NITRO PATCH REMOVED FROM RIGHT CHEST.
--- NOTE | 2019-07-18 09:00 | NUR ---
PRE OP MEDS ADMINISTERED PER ORDER REQUESTED FROM DEPARTMENT HEAD STAFF.
--- NOTE | 2019-07-18 09:10 | NUR ---
PT TANSPORTED OFF FLOOR VIA BED FOR PROCEDURE.
--- NOTE | 2019-07-18 10:04 | CN ---
PATIENT NAME:TIFFANIE COATES MEDICAL RECORD: [id number] : 56 LOCATION:D. D.2112 ADMIT DATE: 07/18/19 ACCOUNT: [id number] CONSULTING PHYSICIAN: AMALIA VANG MD REFERRING PHYSICIAN: DANIEL STORY MD DATE OF CONSULTATION: 07/17/2019 DIAGNOSES: 1. Unstable angina. 2. Coronary artery disease. 3. Previous percutaneous transluminal coronary angioplasty stent. 4. Hypertension. 5. Hyperlipidemia. 6. Renal insufficiency. HISTORY OF PRESENT ILLNESS: Mrs. Coates has a history of coronary artery disease. Last cardiac stent approximately a year ago at [facility]. She developed severe chest discomfort today just like that of her previous angina, but even more severe. It took multiple sublingual nitro in the Emergency Room to resolve it. She continues to have chest discomfort now, but at a much lower level. It is a classic angina pressure, tightness sensation across the anterior chest associated with diaphoresis and shortness of breath. She was scheduled to have a dialysis fistula placed tomorrow by Dr. Blanton. She is now admitted with the angina. PHYSICAL EXAMINATION: CONSTITUTIONAL/GENERAL APPEARANCE: Well nourished, well developed, appears stated age. EYES: Lids and conjunctivae noninjected. No discharge. No pallor. ENT: Lips within normal limit. No cyanosis. No pallor. NECK: Carotid arteries, bilateral normal upstroke. No bruits. No thrills. No jugular venous pressure or distention. CERVICAL LYMPH NODES: Nontender. Nonenlarged. THYROID: Not enlarged. No nodules. CARDIOVASCULAR: Precordial exam, nondisplaced. No heaves or pericardial thrills. Rate and rhythm, regular. Heart sounds, normal S1, normal S2. No S3, no gallop, no rub. Systolic murmur, not heard. Diastolic murmur, not heard. RESPIRATORY: Respiratory effort, unlabored. Normal curvature. No thoracic deformity. No chest wall tenderness. Percussion, resonant. Auscultation, clear. No wheezes, no rales, no rhonchi. ABDOMEN: Soft, nondistended, nontender. No abdominal pain, no vomiting and normal appetite. MUSCULOSKELETAL: No joint tenderness, normal gait, normal tone. SKIN: Warm and dry. OVERALL IMPRESSION: Unstable angina. At this time, we will add nitrates and use morphine to make her pain free. We will have to proceed with coronary angiography in the a.m. after that fistula can be placed. Further care depends upon the findings of the angiography. TRANSINT:[id number] Voice Confirmation ID: [id number] DOCUMENT ID: [id number] CONSULT REPORT [id number] TIFFANIE COATES JEFFREY MD at 1004 CC: [id number] DICTATION DATE: 07/17/19 1259 FANCY WIRE DRAWER: 07/17/19 2134 ADM IN [place] [id number] [place] [address]
--- NOTE | 2019-07-18 10:25 | NUR ---
PT RETURNS TO ROOM VIA BED. PT RESTING COMFORTABLY WITHOUT APPARENT S/S OF DISTRESS NOTED. VSS. SEE FLOW SHEET. DRESSING TO RIGHT GROIN IS CDI. RLE PULSES PALP. RLE WARM. PT MOTHER IS AT BEDSIDE. PT MOTHER AND PT INSTRUCTED ON IMPORTANCE OF LAYING FLAT X 4 HOURS. PT MOTHER VERBALIZES UNDERSTANDING. PT IS RESTING WITH EYES CLOSED. RESPIRATIONS ARE EVEN AND UNLABORED. BED IS IN THE LOWEST POSITION. CALL LIGHT AND BEDSIDE TABLE ARE WITHIN REACH. SIDE RAILS X 2. PT AND PT MOTHER DENY FURTHER NEEDS. WILL CONT TO MONITOR.
--- NOTE | 2019-07-18 11:24 | NUR ---
SPOKE WITH SWETA IN SURGERY. PROCEDURE CANCELLED FOR TODAY. WILL AWAIT FURTHER ORDERS.
--- NOTE | 2019-07-18 16:42 | EC ---
PATIENT:TIFFANIE COATES DATE OF SERVICE: 07/18/19 SEX: F MEDICAL RECORD: [id number] DATE OF : 56 LOCATION:D.M2 D.211 AGE OF PATIENT: 59 ADMISSION DATE: 07/18/19 REFERRING PHYSICIAN: INTERPRETING PHYSICIAN: AMALIA OLMOS MD ECHOCARDIOGRAM REPORT ECHO CHARGES 4 ECHO COMPLETE Date: 07/17/19 CLINICAL DIAGNOSIS: CHF/UNSTABLE ANGINA ECHOCARDIOGRAPHIC MEASUREMENTS (adult normal given) AC root (d.<3.7cm) 3.0 cm LV Septum d (<1.2 cm> 1.9 cm Valve Excursion 1.4 cm LV Septum (systole) 2.4 cm Left Atria (s.<4.0cm> 5.3 cm LVPW d(<1.2cm) 1.9 cm RV (d.<2.3cm) 2.7 cm LVPW (sytole) 2.4 cm LV diastole(<5.6CM) 4.5 cm MV E-F(>70mm/sec) cm LV systole 3.1 cm LVOT Diameter 1.8 cm MV exc.(>10mm) cm Est.ejection fraction (50-75%) % DOPPLER: LVIT cm/sec A 55.0 cm/sec E 151 cm/sec LA cm/sec RVSP 65.0 mmHg LVOT 123 cm/sec AOP1/2T m/s Asc. Ao 267 cm/sec RVOT 75.0 cm/sec RA cm/sec PA 156 cm/sec AV Gradient Peak 29.0 mmHg AV Mean 14.0 mmHg AV Area 1.3 cm MV Gradient Peak 12.3 mmHg MV Mean 3.9 mmHg MV Area cm COMMENTS: Massage Therapist: 1 MARY FLORESOE Package Line Operator: 1 Dr. Olmos TAPE# PACS Pericardial Effusion N DATE OF SERVICE: ECHOCARDIOGRAM FINDINGS: 1. Left ventricular chamber size is within normal limits. Left ventricular systolic function is normal at 50-55%. 2. Left atrium is enlarged at 5.3 cm. Right atrium and right ventricular chamber sizes are as well mildly dilated. 3. Valvular structures have normal structure and motion. ECHOCARDIOGRAM REPORT [id number] TIFFANIE COATES 4. Doppler interrogation reveals moderate mitral regurgitation, moderate tricuspid regurgitation, no other valvular insufficiency or stenosis. Pulmonary systolic pressure estimated at 65 mmHg. 5. No evidence of pericardial effusion or left ventricular thrombus. TRANSINT:[id number] Voice Confirmation ID: [id number] DOCUMENT ID: [id number] AMALIA OLMOS MD at 1642 CC: [id number] DICTATION DATE: 07/18/19 1148 PERSONAL INJURY SPECIALIST: 07/18/19 1228 ADM IN [facility] [address] [place] [address]
--- NOTE | 2019-07-18 16:42 | OP ---
PATIENT NAME: TIFFANIE COATES MEDICAL RECORD: [id number] :56 LOCATION:D.M2 D.2111 ADMISSION DATE:07/18/19 SURGEON: AMALIA VANG MD DATE OF OPERATION: 07/18/2019 DATE OF SERVICE: 07/18/2019 PROCEDURES: 1. PTCA stent LAD. 2. PTCA stent left circumflex. 3. IFR LAD. 4. IFR left circumflex. 5. Left heart catheterization. 6. Selective coronary therapy. 7. Left ventriculogram. INDICATION: Angina and coronary artery disease. PROCEDURE IN DETAIL: After informed consent was obtained and after a detailed description of risks, benefits as well as alternative therapies, the patient elected to proceed with angiogram and angioplasty. The right femoral area was prepped and draped in normal sterile fashion. Right femoral artery was cannulated via modified Seldinger technique with placement of 6-Urdu sheath. All catheters exchanged through this sheath. FINDINGS: Left ventriculogram was performed in standard 30-degree ANDERSON view, reveals good cardiac wall motion, ejection fraction estimated at 60%. SELECTIVE CORONARY ANGIOGRAPHY: 1. Left main is with no significant angiographic disease. 2. Left anterior descending has 70% to 75% stenosis proximally and IFR was abnormal. 3. Left circumflex has 75% stenosis in the mid vessel and the IFR was abnormal. 4. The right coronary has a 70+ percent stenosis proximally. There was then a previously placed stent. The PDA takes off in this previously placed stent. It appears to be 95% stenosed. PTCA STENT OF THE LAD: The stent used was a 3.0 x 34 mm Zaid. Result was 0% residual stenosis. PTCA STENT OF THE LEFT CIRCUMFLEX: The stent used was a 3.0 x 18 mm Goshen. Result was 0% residual stenosis. OVERALL IMPRESSION: Successful percutaneous transluminal coronary angioplasty stent of the left anterior descending and circumflex, both going from 70% to 75% initial stenosis to 0% residual. PLAN: For PTCA stent of the RCA in the near future. TRANSINT:[id number] Voice Confirmation ID: [id number] DOCUMENT ID: [id number] OPERATIVE REPORT [id number] TIFFANIE COATES AMALIA VANG MD at 1642 CC: [id number] DICTATION DATE: 07/18/19 1008 BUSINESS OBJECTS ARCHITECT: 07/18/19 1235 ADM IN [facility] [address] [place] [address]
--- NOTE | 2019-07-18 19:20 | NUR ---
REPORT RECEIVED, WILL CONTINUE POC. PATIENT IS AAOX4, LYING IN SEMI-FOWLERS POSITION. NO S/S OF DISTRESS OBSERVED, RR EVEN AND UNLABORED ON ROOM AIR. FAMILY AT BEDSIDE. CUP OF ICE GIVEN REQUESTED. PIV TO RT HAND, PATENT, SL, DRSG C/D/I. RT GROIN DRSG C/D/I NO S/S OF HEMATOMA OR BLEEDING. PATIENT DENIES NEEDS AT THIS TIME. CL IN REACH, BED LOCKED AND LOWERED. WILL CTM.
--- NOTE | 2019-07-18 20:30 | NUR ---
PATIENT BP 206/105. HS BP MED ADMINISTERED. WILL REASSESS.
[2019-07-19 00:30] VITALS: BP 162/87
[2019-07-19 04:30] VITALS: BP 180/92
--- NOTE | 2019-07-19 05:00 | NUR ---
I have reviewed this patient and I concur with the Shift Assessment completed by the Licensed Practical Nurse today this shift.
[2019-07-19 05:18] LABS: BASOPHILS 0.2 % (0-2); EOSINOPHILS 2.1 % (0-7); HEMOGLOBIN 9.2 g/dL (12-16); IMMATURE GRANULOCYTES 0.1 % (0-5); LYMPHOCYTES 18.1 % (15-50); MCH 31.9 pg (26.0-34.0); MCHC 31.7 g/dL (31.0-37.0); MCV 100.7 fL (80.0-100.0); MEAN PLATELET VOLUME 10.6 fL (7.4-10.4); MONOCYTES 6.4 % (2-11); NEUTROPHILS 73.1 % (40-80); PLATELET COUNT 252 10x3/uL (130-400); RBC 2.88 10x6/uL (4.00-5.40); RDW 15.2 % (11.5-14.5); WBC 8.3 10x3/uL (4.8-10.8)
--- NOTE | 2019-07-19 05:25 | NUR ---
PT BP 180/92 PRN CATAPRES ADMINISTERED PER ORDERS. WILL REASSESS.
[2019-07-19 05:43] LABS: ANION GAP 16.4 mmol/L (8-16); CARBON DIOXIDE 19.1 mmol/L (21.0-32.0); CREATININE - SERUM 4.9 mg/dL (0.6-1.3); POTASSIUM - SERUM 4.5 mmol/L (3.5-5.1)
[2019-07-19 08:21] VITALS: BP 179/98
--- NOTE | 2019-07-19 08:34 | NUR ---
ROUNDING DONE WITH PATIENT VOICING NO NEEDS AT THIS TIME. ON HEART MONITOR SHOWING SR, HR 73. ON ROOM AIR. RIGHT HAND SEEN WITH SALINE LOCK. HAD LHC YESTERDAY, RIGHT GROIN DRESSING SEEN CDI, NO HEMATOMA SEEN OR FELT. ON EP, LABS ARE WNL. WILL MONITOR.
--- NOTE | 2019-07-19 11:07 | NUR ---
B/P IS 182/100. CATAPRESS GIVEN ORDERED. JU MILLER APN NOTIFIED.
[2019-07-19 11:22] VITALS: BP 182/100
--- NOTE | 2019-07-19 13:23 | NUR ---
STILL SITTING IN CHAIR AT THIS TIME. DENIES ANY NEEDS. CALL LIGHT IN USE.
--- NOTE | 2019-07-19 15:02 | NUR ---
BLOOD PRESSURE IS 179/96. PATIENT WANTS TO WAIT ON CATAPRESS AFTER ME GIVING INCREASED DOSE OF APRESOLINE. WILL RE-CHECK B/P IN ONE HOUR AND IF STILL ELEVATED, WILL GIVE CATAPRESS.
[2019-07-19 15:32] VITALS: BP 179/96
--- NOTE | 2019-07-19 16:04 | NUR ---
B/P IS NOW 174/89. CATAPRESS GIVEN ORDERED.
--- NOTE | 2019-07-19 17:24 | NUR ---
SITTING UP IN CHAIR EATING SUPPER. DENIES NEEDS AT THIS TIME. WILL CONTINUE TO MONITOR.
--- NOTE | 2019-07-19 19:11 | NUR ---
RECEIVED UP IN BED WITH EYES OPENA ND TV ON. ALERT AND ORIENTED X4. UP AD ARIANA. IV TO RT HAND SL. DSG TO RT GROIN CDI. DENIES ANY NEEDS AT THIS TIME.
[2019-07-19 20:30] VITALS: BP 147/71
[2019-07-20 00:30] VITALS: BP 136/69
[2019-07-20 04:30] VITALS: BP 156/70
[2019-07-20 05:31] LABS: BASOPHILS 0.3 % (0-2); EOSINOPHILS 1.9 % (0-7); HEMATOCRIT 27.5 % (36.0-48.0); HEMOGLOBIN 8.9 g/dL (12-16); IMMATURE GRANULOCYTES 0.2 % (0-5); LYMPHOCYTES 13.4 % (15-50); MCH 32.4 pg (26.0-34.0); MCHC 32.4 g/dL (31.0-37.0); MEAN PLATELET VOLUME 10.8 fL (7.4-10.4); MONOCYTES 8.4 % (2-11); NEUTROPHILS 75.8 % (40-80); PLATELET COUNT 268 10x3/uL (130-400); RBC 2.75 10x6/uL (4.00-5.40); RDW 15.1 % (11.5-14.5); WBC 9.3 10x3/uL (4.8-10.8)
[2019-07-20 05:42] LABS: ANION GAP 16.3 mmol/L (8-16); CARBON DIOXIDE 18.9 mmol/L (21.0-32.0); CREATININE - SERUM 5.4 mg/dL (0.6-1.3); POTASSIUM - SERUM 4.2 mmol/L (3.5-5.1)
--- NOTE | 2019-07-20 07:20 | NUR ---
RECIEVE REPORT. RESTING IN BED WITH EYES CLOSED. RESPIRATIONS NONLABORED. NO SIGNS OF DISTRESS. CONTINUE PLAN OF CARE AND SAFETY PRECAUTIONS.
[2019-07-20 08:06] VITALS: BP 154/77
[2019-07-20 11:47] VITALS: BP 170/82
[2019-07-20 15:55] VITALS: BP 184/90
--- NOTE | 2019-07-20 16:00 | NUR ---
ALERT AND ORIENTED X4. SITTING UP IN BED. CLONIDINE ADMINISTERED FOR HTN. CONSENTS SIGNED ON CHART FOR PRESSURE VESSEL INSPECTOR. DENIES ANY NEEDS. CONTINUE PLAN OF CARE AND SAFETY PRECAUTIONS.
--- NOTE | 2019-07-20 19:57 | NUR ---
RECEIVED BEDSIDE SHIFT REPORT. LAYING IN BED WITH EYES OPEN AND TV ON. ALERT AND ORIENTED X4. UP AD ARIANA. IV TO RT HAND WITH SODIUM BICAB INFUSING AT 50CC/HR. TELEMETRY IN PLACE. DENIES ANY NEEDS AT THIS TIME.
[2019-07-20 20:30] VITALS: BP 168/82
[2019-07-21 00:30] VITALS: BP 153/73
[2019-07-21 04:30] VITALS: BP 141/74
[2019-07-21 05:54] LABS: BASOPHILS 0.1 % (0-2); EOSINOPHILS 1.4 % (0-7); HEMATOCRIT 27.8 % (36.0-48.0); HEMOGLOBIN 8.9 g/dL (12-16); IMMATURE GRANULOCYTES 0.1 % (0-5); MCH 31.3 pg (26.0-34.0); MEAN PLATELET VOLUME 10.9 fL (7.4-10.4); MONOCYTES 10.5 % (2-11); NEUTROPHILS 72.9 % (40-80); PLATELET COUNT 301 10x3/uL (130-400); RBC 2.84 10x6/uL (4.00-5.40); RDW 14.6 % (11.5-14.5); WBC 9.4 10x3/uL (4.8-10.8)
[2019-07-21 06:04] LABS: ANION GAP 14.8 mmol/L (8-16); CALCIUM 8.2 mg/dL (8.5-10.1); CARBON DIOXIDE 19.1 mmol/L (21.0-32.0); CREATININE - SERUM 5.1 mg/dL (0.6-1.3); POTASSIUM - SERUM 3.9 mmol/L (3.5-5.1)
[2019-07-21 06:30] LABS: MCV 97.9 fL (80.0-100.0)
--- NOTE | 2019-07-21 07:20 | NUR ---
RECIEVE REPORT. ALERT AND ORIENTED X4. RESTING IN BED. SINUS RYTHM ON TELEMETRY. DENIES ANY NEEDS AT THIS TIME. CONTINUE PLAN OF CARE AND SAFETY PRECAUTIONS.
[2019-07-21 08:43] VITALS: BP 158/79
[2019-07-21 11:46] VITALS: BP 172/82
[2019-07-21 15:47] VITALS: BP 122/50; BP 147/79
--- NOTE | 2019-07-21 17:05 | NUR ---
ALERT AND ORIENTED X4. SITTING UP IN BED EATING. DENIES ANY NEEDS. CONTINUE PLAN OF CARE AND SAFETY PRECAUTIONS. EXPLAIN PLAN HEART CATH 07/22/2019 AT 0900.
--- NOTE | 2019-07-21 19:33 | NUR ---
RECEIVED UP IN CHAIR. ALERT AND ORIENTED X4. IV TO RIGHT HAND WITH SODIUM BICAB AT 5OCC/HR. TELEMETRY IN PLACE. DENIES ANY NEEDS. WILL BE NPO AFTER MN FOR CATH IN AM. PT AWARE OF PROCEDURE.
[2019-07-21 20:00] VITALS: BP 160/74
[2019-07-22] VITALS (10 sets, daily range): BP systolic 128–151; BP diastolic 60–80
[2019-07-22 06:36] LABS: BASOPHILS 0.2 % (0-2); EOSINOPHILS 1.5 % (0-7); HEMATOCRIT 26.2 % (36.0-48.0); HEMOGLOBIN 8.4 g/dL (12-16); IMMATURE GRANULOCYTES 0.2 % (0-5); LYMPHOCYTES 10.1 % (15-50); MCH 31.3 pg (26.0-34.0); MCHC 32.1 g/dL (31.0-37.0); MCV 97.8 fL (80.0-100.0); MEAN PLATELET VOLUME 10.9 fL (7.4-10.4); MONOCYTES 9.7 % (2-11); NEUTROPHILS 78.3 % (40-80); PLATELET COUNT 313 10x3/uL (130-400); RBC 2.68 10x6/uL (4.00-5.40); RDW 14.6 % (11.5-14.5); WBC 9.3 10x3/uL (4.8-10.8)
[2019-07-22 06:45] LABS: ANION GAP 13.7 mmol/L (8-16); CALCIUM 8.6 mg/dL (8.5-10.1); CARBON DIOXIDE 23.1 mmol/L (21.0-32.0); CREATININE - SERUM 5.2 mg/dL (0.6-1.3)
[2019-07-22 06:46] LABS: POTASSIUM - SERUM 4.8 mmol/L (3.5-5.1)
--- NOTE | 2019-07-22 07:00 | NUR ---
PT PREOP'D FOR ORDER MANAGEMENT SPECIALIST. ORDER MANAGEMENT SPECIALIST TO COME GET PT VIA BED. PT CALLED HER FAMILY TO LET THEM KNOW SHE WAS GOING SOON.
--- NOTE | 2019-07-22 08:05 | NUR ---
SPOKE WITH [facility] MANAGER TESTING AND THEY STATED X1 STENT TO THE RCA 2 VERSED, 100 FENTANYL, 4000 UNITS HEPARIN. ZEFRABAND RIGHT WRIST. PLAVIX FOR TODAY GIVEN. PT STILL A LITTLE DROWSY. DR. VANG STATED PT CAN DC TODAY IN FOUR HOURS IF IT IS OK WITH PRIMARY. I VERBALIZED UNDERSTANDING.
--- NOTE | 2019-07-22 09:50 | NUR ---
PT LYING IN BED WITH HOB ELEVATED. EYES CLOSED. CHEST RISING AND FALLING. RIGHT WRIST NO BLEEDING NOTED WEAR BAND. FMAILY AT BEDSIDE. VS STABLE. WILL CONTINUE TO MONITOR. BED LOW.CL IN REACH.
--- NOTE | 2019-07-22 11:35 | NUR ---
REMOVED 2ML OF AIR FROM Z BAND. NO BLEEDING NOTED. WILL CONTINUE TO MONITOR.
--- NOTE | 2019-07-22 12:12 | NUR ---
REMOVED 2ML FROM RIGHT WRIST NO BLEEDING NOTED.
[2019-07-22] MEDS ORDERED: ROCALTROL0.25 MCG PO (12:52)
[2019-07-22] MEDS ORDERED: NEPHRO-VITE RX1 TAB PO (12:52)
--- NOTE | 2019-07-22 13:27 | NUR ---
TOOK 4CC OF AIR OUT OF ZBAND. NO BLEEDING NOTED.
[2019-07-22] MEDS ORDERED: BAYER CHEWABLE81 MG PO (13:47)
--- NOTE | 2019-07-22 14:44 | NUR ---
REMOVED REST OF AIR FROM ZBAND. NO BLEEDING NOTED. PLACED BANDAID OVER INSERTION SITE AND PLACED IMMONILIZER BACK ON.
--- NOTE | 2019-07-22 16:46 | NUR ---
TELEMETRY DC'D. RIGHT HAND 20G IV DC'D WITH CTAH INTACT. DISCHARGE INSTRUCTIONS GIVEN TO PT. PT HAS NO FURTHER QUESTIONS. CHART COPY SIGNED. PT STATES HER SON IS SUPPOSSED TO PICK HER UP. I VERBALIZED UNDERSTANDING.
--- NOTE | 2019-07-22 17:44 | MORECARE ---
CASE MANAGEMENT DISCHARGE SUMMARY PATIENT: TIFFANIE COATES UNIT: [id number] ADM DATE: 07/18/19 AGE: 59 : 56 SEX: F ROOM/BED: D.2112 AUTHOR: NADINE,DOC PHYSICIAN: REFERRING PHYSICIAN: DANIEL STORY MD DATE OF SERVICE: 07/22/19 Discharge Plan Patient Name: TIFFANIE COATES Facility: [facility]:[place] : 1960 Planned Disposition: Home Anticipated Discharge Date: 07/22/19 Discharge Date: Expected LOS: 4 Initial Reviewer: [email or web address] Initial Review Date: 07/22/2019 Generated: 07/22/19 6:43 pm Comments DCP- Discharge Planning Updated by [email or web address]: Jesus Romero on 07/22/19 4:[address] Patient Name: TIFFANIE COATES Admission Status: ER Accout number: [id number] Admission Date: 07-18-2019 : 1960 Admission Diagnosis: Attending: DANIEL STORY Current LOS: 4 Anticipated DC Date: 07-22-2019 Planned Disposition: Home Primary Insurance: MEDICAID [place] Discharge Planning Comments: CM MET WITH PT IN ROOM TO DISCUSS DISCHARGE PLANNING AND NEEDS. PT REPORTS LIVING AT HOME INDEPENDENTLY AND ALONE. PT HAS NO MEDICAL EQUIPMENT AND NO OUTSIDE SERVICES ASSISTING IN THE HOME. CM DISCUSSED AVAILABILITY OF HOME HEALTH, REHAB SERVICES AND MEDICAL EQUIPMENT. PT DENIES DISCHARGE NEEDS, REPORTS HER SON WILL PICK HER UP FOR DISCHARGE HOME. Tank Car Loader: Jesus Romero DCPIA - Discharge Planning Initial Assessment Updated by [email or web address]: Jesus Romero on 07/22/19 5:38 pm * Is the patient Alert and Oriented? Yes * How many steps to enter\exit or inside your home? * PCP DR. KAREEM GIBBS, [facility] * Pharmacy [facility] [address] * Preadmission Environment Home Alone * ADLs Independent * Equipment None * Other Equipment [employer], EQUIPMENT PROVIDER * List name and contact numbers for known caregivers / representatives who currently or will assist patient after discharge: JOE SHAFFER, MOTHER, NATASHA COATES, SON, * Verbal permission to speak to the caregivers and representatives has been obtained from the patient. N/A * Community resources currently utilized None * Please name any agencies selected above. NONE * Additional services required to return to the preadmission environment? No * Can the patient safely return to the preadmission environment? Yes * Has this patient been hospitalized within the prior 30 days at any hospital? No Patient Name: TIFFANIE COATES Page 17725 at 1744 All edits/amendments must be made on the electronic document DICTATION DATE: 07/22/191742 COURT ATTENDANT: CHASE 07/22/191742 RPT#: [id number] DC DATE: STATUS: ADM IN [facility] [address] [place] [address] END OF REPORT
--- NOTE | 2019-07-22 18:00 | NUR ---
PT TAKEN DOWN VIA WC BY THIS NURSE AND LEFT WITH SON IN HIS CAR AND MOTHER.
== END 2019-07-22 18:23 | disposition home or self-care (01) | DRG 246 ==
LOC: D.ER 08:48 → D.M2 10:52 → OBSVTIME 10:53 → D.SDCHOLD 11:11 → D.M2 11:11
PROVIDERS: Emergency Medicine; Internal Medicine Interventional Cardiology; ADMIT Internal Medicine Nephrology; ATTEND Internal Medicine Nephrology
PROC: 4A033BC Measurement of Arterial Pressure, Coronary, Percutaneous Approach (ICD-10-PCS; 2019-07-18)
PROC: 4A023N7 Measurement of Cardiac Sampling and Pressure, Left Heart, Percutaneous Approach (ICD-10-PCS; 2019-07-18)
PROC: B2111ZZ Fluoroscopy of Multiple Coronary Arteries using Low Osmolar Contrast (ICD-10-PCS; 2019-07-18)
PROC: B2151ZZ Fluoroscopy of Left Heart using Low Osmolar Contrast (ICD-10-PCS; 2019-07-18)
PROC: 027135Z Dilation of Coronary Artery, Two Arteries with Two Drug-eluting Intraluminal Devices, Percutaneous Approach (ICD-10-PCS; principal; 2019-07-18 08:00)
PROC: 027034Z Dilation of Coronary Artery, One Artery with Drug-eluting Intraluminal Device, Percutaneous Approach (ICD-10-PCS; 2019-07-21)
DX: I25.110 Atherosclerotic heart disease of native coronary artery with unstable angina pectoris (principal); I50.33 Acute on chronic diastolic (congestive) heart failure; N17.9 Acute kidney failure, unspecified; I13.0 Hypertensive heart and chronic kidney disease with heart failure and stage 1 through stage 4 chronic kidney disease, or unspecified chronic kidney disease; N18.4 Chronic kidney disease, stage 4 (severe); N25.81 Secondary hyperparathyroidism of renal origin; E11.22 Type 2 diabetes mellitus with diabetic chronic kidney disease; I50.9 Heart failure, unspecified; E78.5 Hyperlipidemia, unspecified; D63.1 Anemia in chronic kidney disease

== ENCOUNTER → 2019-11-03 10:59 | Outpatient (CLI) | payer MEDICAID ==
[2019-07-17 12:47] VITALS: BMI 27.0
[~2019-11-03 10:59] MED LIST: BAYER CHEWABLE81 MG PO; CATAPRES0.1 MG PO; HYDROCHLOROTHIA25 MG PO; JANUVIA25 MG PO; LEVEMIR IN100 UNITS/ SC; LISINOPRIL2.5 MG PO; NEPHRO-VITE RX1 TAB PO; NITROQUICK0.4 MG SL; PLAVIX75 MG PO; ROCALTROL0.25 MCG PO; SODIUM BICARBO325 MG PO
== END | disposition home or self-care (01) ==
LOC: D.RAD 10:59
PROVIDERS: ATTEND Internal Medicine
DX: N18.6 End stage renal disease (principal); Z11.59 Encounter for screening for other viral diseases

== ENCOUNTER 2019-11-07 06:12 | Day surgery (SDC) | payer MEDICAID ==
--- NOTE | ~2019-11-07 | OP ---
PATIENT NAME: TIFFANIE COATES MEDICAL RECORD: [id number] :56 LOCATION:DAdelinaOPS ADMISSION DATE: SURGEON: ANGELA SHINE MD DATE OF OPERATION: 11/07/2019 REFERRED BY: Argentina Kim DO PREOPERATIVE DIAGNOSES: Chronic kidney disease V, nearing end-stage renal disease and nearing initiation of dialysis. POSTOPERATIVE DIAGNOSES: Chronic kidney disease V, nearing end-stage renal disease and nearing initiation of dialysis. SURGEON: Angela Shine MD ANESTHESIA: Left-sided regional nerve block per Dr. Sofia and KELLY and local 1% lidocaine with epinephrine and 0.25% Marcaine with epinephrine for local anesthetic in the cervical area. OPERATION PERFORMED: 1. Creation of a left brachiocephalic arteriovenous fistula. 2. Implantation of 19 cm HemoSplit via the right internal jugular vein with intraoperative fluoroscopic guidance and realtime ultrasound guidance with image documentation. PREOPERATIVE NOTE: Ms. Coates is a 59-year-old -[place] female patient referred to me by Dr. Kim. She has severe renal disease and needs to start dialysis. She also has significant coronary artery disease and had an MRI with angioplasty and stenting about 3 months ago. She is on Plavix and that is to be continued so we planned to operate her on Plavix and create a fistula as well as implant a catheter so that she can initiate dialysis. DESCRIPTION OF PROCEDURE: Under regional nerve block, the patient was placed in supine position, prepped and draped in sterile manner. Nitroglycerin ointment was applied to the skin of the arm and forearm and a Boogie drain was used as a proximal venous tourniquet. I examined her veins with ultrasound and found the brachial artery and cephalic vein at the antecubital space to be the most likely site for successful creation of a fistula. I made a transverse incision and mobilized the median cubital vein and the brachial artery vessels were controlled with Silastic loops and atraumatic clamps. The vein was distally ligated and divided and flushed with heparinized saline and treated with topical papaverine. It was shortened and beveled. The artery was occluded proximally and distally with loops and a small arteriotomy made and the artery then flushed proximally and distally with heparinized saline. The arteriovenous anastomosis was then done end-to-side, end-to-vein to side of artery with continuous running 7-0 Prolene without difficulty and when completed, the occluding clamps and loops were released, excellent flow developed immediately in the new fistula and this was documented by palpation of a strong thrill and continuous wave pulsatile Doppler flow signals in the new fistula and proximal brachial artery and there was preservation of pulsatile flow with a high resistance type signal in the distal brachial artery. The wound was closed with interrupted inverted 3-0 Vicryl and running intracuticular 4-0 Stratafix and Dermabond glue and it was dressed with Maxorb Ag, Tegaderm, and Cavilon skin prep. The patient was then exposed and I examined the neck with ultrasound and OPERATIVE REPORT [id number] TIFFANIE COATES documented both the right and left. Internal jugular veins were quite distended and fully collapsible without any other abnormalities identified. The patient was then totally reprepped and redraped. I located the internal jugular vein with ultrasound and made a small incision at the base of the neck directly over it and used a micropuncture needle with continuous real-time ultrasound guidance to cannulate the vein and insert 0.018 guidewire. Catheter was inserted then over the wire and then a larger wire and then serial dilators were passed under fluoroscopy. Ultrasound images were recorded on hard taper and stored in the patient's chart for documentation and future reference. Fluoroscopic images were stored on the PACS. I chose a 19-cm HemoSplit catheter and inserted this through a small infraumbilical incision and through a subcutaneous tunnel up to the primary cervical wound. A dilator peel-away sheath was inserted over the wire under fluoroscopy and the HemoSplit catheter then inserted through that and the peel-away sheath removed. The catheter was positioned deeply in the right atrium with the venous lumen medial and the arterial lumen lateral as preferred. The catheter was accessed and aspirated, free return of blood was confirmed from each lumen. The catheter was then flushed with heparinized saline, then Hep-Lock, clamped and capped. The catheter was sutured to the skin at the exit site with 2-0 Prolene. The subcutaneous tract was packed gently with some fibrillar hemostatic material and hemostasis was excellent. The cervical incision was closed with a running 4-0 Prolene suture. This was used because of the likelihood of postoperative bleeding due to high venous pressures and the patient's continued medication with Plavix. The wounds were dressed with Maxorb Ag, Tegaderm, and Cavilon skin prep and the catheter exit site dressed with a chlorhexidine Biopatch in standard CVL with adhesive dressing. She was awakened and taken to the recovery room in stable condition. Blood loss during the operation was trivial and unreplaced. Sponges, instruments, and needles were accounted for. No drain was used and no surgical specimen was submitted for histopathology. PLAN: She should be discharged to home today, and will be, I believe going to [facility] next week, probably on Sunday to initiate dialysis with her catheter. It is important to notify the dialysis unit that the sutures in her neck, there on the right side need to be removed in 1 week to prevent development of skin necrosis. I will plan to see the patient back in 2 weeks to check her fistula. In the meantime, she should leave the original operative dressing intact and keep it dry and clean. She is given a prescription for 10 tablets of Toradol 50 mg one p.o. every 4 hours p.r.n. pain. She is to continue all of her other antihypertensive and anti-diabetes medications. TRANSINT:[id number] Voice Confirmation ID: [id number] DOCUMENT ID: [id number] cc: [facility] OPERATIVE REPORT [id number] TIFFANIE COATES JAMES MD CC: ARGENTINA KIM DO [id number] DICTATION DATE: 11/07/191117 POCKETBOOK MAKER: 11/07/191851 [facility] 11/07/19 [facility] [address] [place] [address]
[2019-11-07 07:01] LABS: BASOPHILS 0.6 % (0-2); EOSINOPHILS 1.8 % (0-7); HEMATOCRIT 27.1 % (36.0-48.0); HEMOGLOBIN 8.5 g/dL (12-16); IMMATURE GRANULOCYTES 0.2 % (0-5); LYMPHOCYTES 23.9 % (15-50); MCH 30.7 pg (26.0-34.0); MCHC 31.4 g/dL (31.0-37.0); MCV 97.8 fL (80.0-100.0); MEAN PLATELET VOLUME 10.3 fL (7.4-10.4); MONOCYTES 8.2 % (2-11); NEUTROPHILS 65.3 % (40-80); RBC 2.77 10x6/uL (4.00-5.40); RDW 14.6 % (11.5-14.5); WBC 6.2 10x3/uL (4.8-10.8)
[2019-11-07 07:21] LABS: PLATELET COUNT 233 10x3/uL (130-400)
[2019-11-07 07:22] LABS: ANION GAP 19.8 mmol/L (8-16); CALCIUM 7.5 mg/dL (8.5-10.1); CARBON DIOXIDE 15.1 mmol/L (21.0-32.0); POTASSIUM - SERUM 3.9 mmol/L (3.5-5.1)
[2019-11-07 07:36] LABS: INR 1.27 (0.85-1.17); PROTIME 15.8 SECONDS (11.6-15.0)
[2019-11-07 07:48] VITALS: Wt 70.3 kg
[2019-11-07] MEDS ORDERED: ULTRAM50 MG (10:53)
--- NOTE | 2019-11-07 10:56 | NUR ---
OPA IN AIRWAY ON ADMIT REMOVED @3585
--- NOTE | 2019-11-07 14:02 | NUR ---
1130 IV REMOVED AND PRESURE HELD
--- NOTE | 2019-11-07 15:39 | NUR ---
1400 IV REMOVED PRESSURE HELD. PT DROWSEY EASY TO ARROUSE DENIES PAIN
== END 2019-11-07 14:55 | disposition home or self-care (01) ==
LOC: D.OPS 06:12
PROVIDERS: ATTEND Internal Medicine
DX: E11.22 Type 2 diabetes mellitus with diabetic chronic kidney disease (principal); I12.0 Hypertensive chronic kidney disease with stage 5 chronic kidney disease or end stage renal disease; N18.5 Chronic kidney disease, stage 5; I25.10 Atherosclerotic heart disease of native coronary artery without angina pectoris; I50.22 Chronic systolic (congestive) heart failure; Z79.84 Long term (current) use of oral hypoglycemic drugs

== ENCOUNTER 2019-11-09 09:44 | Inpatient (IN) | payer MEDICAID ==
[~2019-11-09] VITALS: Ht 167.6 cm; Wt 69.1 kg
[~2019-11-09 09:44] MED LIST changes: +ULTRAM50 MG
--- NOTE | 2019-11-09 10:09 | NUR ---
DR. TREJO IN TO SEE PT. LAB HERE FOR BLOOD DRAW.
[2019-11-09 10:19] LABS: HEMATOCRIT 28.2 % (36.0-48.0); HEMOGLOBIN 9.1 g/dL (12-16); LYMPHOCYTES 10.7 % (15-50); MCH 31.3 pg (26.0-34.0); MCHC 32.3 g/dL (31.0-37.0); MCV 96.9 fL (80.0-100.0); MEAN PLATELET VOLUME 10.7 fL (7.4-10.4); NEUTROPHILS 79.4 % (40-80); PLATELET COUNT 201 10x3/uL (130-400); RBC 2.91 10x6/uL (4.00-5.40); RDW 15.6 % (11.5-14.5); WBC 7.1 10x3/uL (4.8-10.8)
[2019-11-09 10:31] LABS: ANION GAP 21.5 mmol/L (8-16); CALCIUM 7.9 mg/dL (8.5-10.1); CARBON DIOXIDE 13.7 mmol/L (21.0-32.0); CREATININE - SERUM 9.6 mg/dL (0.6-1.3); POTASSIUM - SERUM 4.2 mmol/L (3.5-5.1)
[2019-11-09] MEDS ORDERED: BUMEX2 MG PO (10:32)
[2019-11-09] MEDS ORDERED: ISORDIL5 MG PO (10:33)
[2019-11-09 10:39] LABS: ALBUMIN 2.8 g/dL (3.4-5.0); BILIRUBIN - TOTAL 0.26 mg/dL (0.2-1.3)
[2019-11-09 10:55] LABS: MAGNESIUM - SERUM 1.9 mg/dL (1.8-2.4)
[2019-11-09 12:16] VITALS: BP 142/63
--- NOTE | 2019-11-09 13:44 | NUR ---
PT VOIDED 20CC
--- NOTE | 2019-11-09 14:00 | NUR ---
NEW PATIENT ADMIT FROM ER VIA WC ACCOMPANIED HOPSITAL STAFF. PATIENT TRANSFERRED TO BED WITHOUT DIFFCULTY. PATIENT IS ALERT AND ORIENTED X 4. PATIENT APPEARS IN NO ACUTE DISTRESS. PATIENT IS ANSWERS QUESTIONS APPROPRIATELY. ASSESSMENT COMPLETED. ORIENTED PATIENT TO ROOM AND CALL LIGHT. PATIENT DENIES ANY NEED OR PAIN. WILL CONTINUE TO MONITOR. SR X 2 BED IN LOW POSITION AND CALL LIGHT IN REACH.
[2019-11-09 15:11] VITALS: BP 122/56
[2019-11-09] MEDS ORDERED: CARDURA2 MG PO (16:05)
[2019-11-09 16:58] VITALS: BP 148/78; BMI 27.5
--- NOTE | 2019-11-09 17:40 | NUR ---
PATIENT IS STABLE AND VSS. PATIENT DENIES ANY NEEDS OR PAIN. DTR AT BS. WILL CONTINUE WITH PLAN OF CARE. SR UP X 2 BED IN LOW POSITION AND CALL LIGHT IN REACH.
[2019-11-09 17:55] VITALS: BP 214/92
--- NOTE | 2019-11-09 19:00 | NUR ---
BEDSIDE REPORT RECEIVED, PT CARE ASSUMED. INTRODUCED SELF AND WROTE NAME ON BOARD. PT SITTING UP IN BED, AAOX4. C/O ABD PAIN OF 8, ON A SCALE OF 0-10. SON AT BEDSIDE, QUESTIONS ANSWERED, PROVIDED UPDATED CELLPHONE NUMBER TO REACH HIM [phone]. PT DENIES ANY OTHER NEEDS AT THIS TIME. BED IN LOWEST, SRX2, CALL LIGHT WITHIN REACH. WILL CTM.
[2019-11-09 20:30] VITALS: BP 196/90
[2019-11-10 00:30] VITALS: BP 173/74
[2019-11-10 04:30] VITALS: BP 148/70
[2019-11-10 09:51] VITALS: BP 173/83
--- NOTE | 2019-11-10 10:16 | NUR ---
REPORT RECIEVED. PT SITTING SEMI FOWLERS IN BED. RR EVEN AND UNLABORED ON RA. SHE HAS A R FA PIV THAT IS SL AND A L FA FISTULA. BED LOCKED AND IN LOWEST POSITION, CALL LIGHT WITHIN REACH. WILL CTM
[2019-11-10 12:45] VITALS: Ht 167.6 cm; Wt 69.1 kg
--- NOTE | 2019-11-10 16:24 | NUR ---
I have reviewed this patient and I concur with the Shift Assessment completed by the Licensed Practical Nurse today this shift.
--- NOTE | 2019-11-10 19:34 | NUR ---
BED LOW AND LOCKED PT ASKED FOR AIR TO BE ADJUSTED NO OTHER NEEDS BED IS LOW AND LOCKED
[2019-11-10 21:51] VITALS: BP 184/91
[2019-11-11 01:26] VITALS: BP 151/83
--- NOTE | 2019-11-11 03:03 | NUR ---
I have reviewed this patient and I concur with the Shift Assessment completed by the Licensed Practical Nurse today this shift.
[2019-11-11 05:03] VITALS: BP 140/74
[2019-11-11 05:51] LABS: BASOPHILS 0.4 % (0-2); EOSINOPHILS 2.4 % (0-7); HEMOGLOBIN 7.8 g/dL (12-16); IMMATURE GRANULOCYTES 0.2 % (0-5); LYMPHOCYTES 16.5 % (15-50); MCHC 32.5 g/dL (31.0-37.0); MCV 95.2 fL (80.0-100.0); MEAN PLATELET VOLUME 10.4 fL (7.4-10.4); MONOCYTES 15.3 % (2-11); NEUTROPHILS 65.2 % (40-80); PLATELET COUNT 197 10x3/uL (130-400); RBC 2.52 10x6/uL (4.00-5.40); RDW 14.7 % (11.5-14.5); WBC 5.4 10x3/uL (4.8-10.8)
[2019-11-11 06:32] LABS: ANION GAP 16.2 mmol/L (8-16); CALCIUM 7.6 mg/dL (8.5-10.1); POTASSIUM - SERUM 3.6 mmol/L (3.5-5.1)
[2019-11-11 06:33] LABS: CARBON DIOXIDE 21.4 mmol/L (21.0-32.0); CREATININE - SERUM 6.4 mg/dL (0.6-1.3)
[2019-11-11 07:13] LABS: HEP B CORE AB TOTAL Negative (Negative); HEPATITIS C ANTIBODY 0.4 S/CO RAT (0.0-0.9)
--- NOTE | 2019-11-11 07:32 | NUR ---
I TRIED TO CALL DIALYSIS TO SEE ABOUT WHAT TIME FOR DISCHARGE. NO ANSWER IN THE DIALYSIS UNIT.
--- NOTE | 2019-11-11 07:40 | NUR ---
REPORT RECIEVED. PT SITTING SEMI FOWLERS. RR EVEN AND UNLABORED ON RA. PT HAS A R FA PIV THAT IS SL AND A L AV FISUTLA FOR DIALYSIS. BED LOCKED AND IN LOWEST POSITION, CALL LIGHT WITHIN REACH. WILL CTM
[2019-11-11 09:46] VITALS: BP 180/87
--- NOTE | 2019-11-11 10:26 | MORECARE ---
CASE MANAGEMENT DISCHARGE SUMMARY PATIENT: TIFFANIE COATES UNIT: [id number] ADM DATE: 11/09/19 AGE: 59 : 56 SEX: F ROOM/BED: D.[facility] AUTHOR: ODETTE MCCOY PHYSICIAN: REFERRING PHYSICIAN: MABEL KIM DO DATE OF SERVICE: 11/11/19 Discharge Plan Patient Name: TIFFANIE COATES [facility] [facility] 1960 Planned Disposition: Home Anticipated Discharge Date: 11/11/19 Discharge Date: Expected LOS: 2 Initial Reviewer: [email or web address] Initial Review Date: 11/11/2019 Generated: 11/11/19 11:25 am DCPIA - Discharge Planning Initial Assessment Updated by [email or web address]: Aury Posadas on 11/11/19 10:23 am * Is the patient Alert and Oriented? Yes * How many steps to enter\exit or inside your home? 2/0 * PCP [facility]ana Her[facility] * Pharmacy [facility] * Preadmission Environment Home Alone * ADLs Independent * Equipment None * Verbal permission to speak to the caregivers and representatives has been obtained from the patient. Yes * Community resources currently utilized Other * Please name any agencies selected above. Dialysis at [facility] at 11:15 * Additional services required to return to the preadmission environment? No * Can the patient safely return to the preadmission environment? Yes * Has this patient been hospitalized within the prior 30 days at any hospital? No Patient Name: TIFFANIE COATES Page 14561 at 1026 All edits/amendments must be made on the electronic document DICTATION DATE: 11/11/19 1025 IAP DISPLAYS ANALYST: CHASE 11/11/19 1025 RPT#: [id number] DC DATE: STATUS: ADM IN [facility] [address] [place] [address] END OF REPORT
--- NOTE | 2019-11-11 10:33 | MORECARE ---
CASE MANAGEMENT DISCHARGE SUMMARY PATIENT: TIFFANIE COATES UNIT: [id number] ADM DATE: 11/09/19 AGE: 59 : 56 SEX: F ROOM/BED: D.6101 AUTHOR: ODETTE MCCOY PHYSICIAN: REFERRING PHYSICIAN: MABEL KIM DO DATE OF SERVICE: 11/11/19 Discharge Plan Patient Name: TIFFANIE COATES Facility: [facility]:[place] : 1960 Planned Disposition: Home Anticipated Discharge Date: 11/11/19 Discharge Date: Expected LOS: 2 Initial Reviewer: [email or web address] Initial Review Date: 11/11/2019 Generated: 11/11/19 11:32 am Comments DCP- Discharge Planning Updated by [email or web address]: Aury Posadas on 11/11/19 9:[address] Patient Name: TIFFANIE COATES Admission Status: ER Accout number: [id number] Admission Date: 11-09-2019 : 1960 Admission Diagnosis: Attending: SIMÓN Current LOS: 2 Anticipated DC Date: 11-11-2019 Planned Disposition: Home Primary Insurance: MEDICAID [place] Discharge Planning Comments: CM met with patient to complete initial dc planning assessment. CM educated patient on the CM role and verbal consent given by patient to complete assessment. Patient lives at home alone. At discharge patient plans to return and feels this is a safe discharge. CM discussed availability of home health, rehab services, and medical equipment. Patient denied known discharge needs at this time. She is set up at [facility], first chair time is 11:15, to be there at 10:30 this . She is aware of time and place. She does have her folder in the room with the new dialysis information. She states she will have family take her home today after dialysis. States she wallride the [facility] transportation to and from dialysis. I provided her with the phone number to [facility] transportation. She states she has used it before, but it had been awhile. I also gave her the number to [facility] nephrology office. No other needs identified. CM will continue to follow and will assist as needed with dc plans/needs. Engineer Third Assistant: Aury Posadas DCPIA - Discharge Planning Initial Assessment Updated by [email or web address]: Aury Posadas on 11/11/19 10:23 am * Is the patient Alert and Oriented? Yes * How many steps to enter\exit or inside your home? 2/0 * PCP [facility]ana Her[facility] - [facility] * Pharmacy [facility] on [address] * Preadmission Environment Home Alone * ADLs Independent * Equipment None * Verbal permission to speak to the caregivers and representatives has been obtained from the patient. Yes * Community resources currently utilized Other * Please name any agencies selected above. Dialysis at [facility] at 11:15 * Additional services required to return to the preadmission environment? No * Can the patient safely return to the preadmission environment? Yes * Has this patient been hospitalized within the prior 30 days at any hospital? No Last DP export: 11/11/19 9:26 a Patient Name: TIFFANIE COATES Page 56094 at 1033 All edits/amendments must be made on the electronic document DICTATION DATE: 11/11/19 1032 DESIGN AGENT: CHASE 11/11/19 1032 RPT#: [id number] DC DATE: STATUS: ADM IN [facility] [address] [place] [address] END OF REPORT
--- NOTE | 2019-11-11 13:47 | NUR ---
PT RETURNED TO ROOM FROM DIALYSIS. DC PAPERWORK GONE OVER AND SIGNED WITH PT. ALL QUESTIONS ANSWERED. PT STATES HER RIDE WILL BE HERE AROUND 1430. PIV REMOVED AND FULLY INTACT. WILL CTM
--- NOTE | 2019-11-11 15:12 | NUR ---
ALL VALUBLES PACKED AND TAKIN WITH PT. PT WHEELED DOWNSTAIRS.
== END 2019-11-11 15:17 | disposition home or self-care (01) | DRG 291 ==
LOC: D.ER 09:44 → D.M2 13:56
PROVIDERS: Emergency Medicine; ADMIT Internal Medicine; ATTEND Internal Medicine
DX: I13.2 Hypertensive heart and chronic kidney disease with heart failure and with stage 5 chronic kidney disease, or end stage renal disease (principal); N18.6 End stage renal disease; I50.33 Acute on chronic diastolic (congestive) heart failure; E87.2 Acidosis; E87.70 Fluid overload, unspecified; E11.22 Type 2 diabetes mellitus with diabetic chronic kidney disease; I25.10 Atherosclerotic heart disease of native coronary artery without angina pectoris; E21.3 Hyperparathyroidism, unspecified; D63.1 Anemia in chronic kidney disease; R60.1 Generalized edema